=== PATIENT | female | born 1960 | race Caucasian/White ===

== ENCOUNTER 2019-01-31 19:33 | Emergency (ER) | payer MEDICAID, OTHER ==
[~2019-01-31] VITALS: Ht 165.1 cm; Wt 64.0 kg
[2019-01-31] MEDS ORDERED: SODIUM CHLORIDE 0.9% 1,000 ML IV ONE (20:15)
[2019-01-31 21:10] LABS: BASOPHILS % 0.5 % (0.0-2.0); EOSINOPHILS % 1.5 % (0.0-5.0); HEMATOCRIT. 38.6 % (36.0-48.0); HEMOGLOBIN. 13.2 g/dL (12.0-16.0); MEAN CORPUSCULAR HEMOGLOBIN 30.7 pg (28.0-32.0); MEAN PLATELET VOLUME 8.9 fl (7.4-10.4); MONOCYTES % 8.5 % (2.0-8.0); NEUTROPHILS % 58.5 % (40.0-76.0); PLATELET 199 x1000/uL (130-400); RED BLOOD CELL COUNT 4.29 mill/uL (4.2-5.4); RED CELL DISTRIBUTION WIDTH 13.1 % (11.6-14.6)
[2019-01-31 21:15] LABS: CHLORIDE 109 mEq/L (98-107)
[2019-01-31 22:35] VITALS: BP 142/72
== END 2019-01-31 22:37 | disposition home or self-care (01) ==
LOC: ER 20:03
DX: F41.0 Panic disorder [episodic paroxysmal anxiety] (principal)
CPT/HCPCS: 36415; 71045; 80053; 83880; 84484; 85025; 93005; 96360; 96361; 99284; J7030; Z7610

== ENCOUNTER 2025-03-14 05:30 | Emergency (ER) | payer MEDICAID ==
[~2025-03-14] VITALS: Ht 157.5 cm; Wt 59.0 kg
[2025-03-14 05:38] VITALS: O2SAT 100
[2025-03-14 06:22] LABS: BASOPHILS % 1.0 % (0.0-2.0); EOSINOPHILS % 5.5 % (0.0-5.0); HEMATOCRIT. 36.2 % (36.0-48.0); HEMOGLOBIN. 12.4 g/dL (12.0-16.0); LYMPHOCYTES % 41.8 % (20.0-50.0); MEAN PLATELET VOLUME 8.2 fl (7.4-10.4); MONOCYTES % 9.3 % (2.0-8.0); NEUTROPHILS % 42.4 % (40.0-76.0); PLATELET 221 x1000/uL (130-400); RED BLOOD CELL COUNT 3.99 mill/uL (4.2-5.4); RED CELL DISTRIBUTION WIDTH 13.8 % (11.6-14.6)
[2025-03-14] MEDS: PREDNISONE 20MG TABLET PO ONE (06:24)
[2025-03-14 06:35] LABS: CREATININE 0.6 mg/dL (0.6-1.0)
[2025-03-14 06:36] LABS: UREA NITROGEN BLOOD 13 mg/dL (9-23)
[2025-03-14 06:37] LABS: ASPARTATE AMINOTRANSFERASE 19 IU/L (<34); PROTEIN TOTAL 6.8 g/dL (6.0-8.3)
[2025-03-14 06:38] LABS: BILIRUBIN DIRECT 0.1 mg/dL (<=3.0); BILIRUBIN TOTAL 0.5 mg/dL (0.1-1.0)
[2025-03-14 07:11] VITALS: PULSE 80; RESP 18
[2025-03-14] MEDS: IPRATROPIUM/ALBUTEROL 0.5-3(2.5)MG/3ML NEB HHN ONE (07:11)
[2025-03-14 08:12] LABS: INFLUENZA TYPE A Presumptive Negative (Pres. Neg.); INFLUENZA TYPE B Presumptive Negative (Pres. Neg.); RESPIRATORY SYNCYTIAL VIRUS Not Detected (Not Detectd)
[2025-03-14] MEDS ORDERED: ALBU18HF2 IH (08:30)
[2025-03-14] MEDS ORDERED: P50 MT (08:30)
[2025-03-14] MEDS ORDERED: GUAI-450 MT (08:31)
[2025-03-14 08:46] VITALS: BP 126/76; PULSE 73; RESP 16; TEMP 36.4; O2SAT 100
== END 2025-03-14 08:47 | disposition home or self-care (01) ==
LOC: ER 05:30
DX: J20.8 Acute bronchitis due to other specified organisms (principal); J06.9 Acute upper respiratory infection, unspecified; I10 Essential (primary) hypertension; R06.02 Shortness of breath; J45.909 Unspecified asthma, uncomplicated; E11.9 Type 2 diabetes mellitus without complications; Z20.822 Contact with and (suspected) exposure to COVID-19
CPT/HCPCS: 80076; 80048; 83880; 85025; 87420; 87804 ×2; 36415; 71045; 94640; 93005; 99285; 87426; J7512; Z7610 ×4; A4606